=== PATIENT | female | born 1950 | race American Indian/Alaskan Native ===

== ENCOUNTER 2016-12-30 08:03 | Outpatient (CLI) | payer MEDICARE ==
--- NOTE | 2016-12-30 09:48 | Mammography Report ---
Bilateral mammogram: No previous studies are available. CAD study utilized. Findings: Heterogeneous breast parenchyma bilaterally. Focal calcific area at subareolar region left breast. Focal ill-defined density symmetrically lower anterior left breast. Normal axilla. Impression: Focal calcification noted left breast and focal asymmetry left breast. Comparison with previous studies initially recommended. If previous studies are not available spot magnification of calcification in the left breast and spot magnification and sonographic examination of focal asymmetry left breast recommended. BI-RADS CATEGORY: 0 = Needs additional imaging evaluation ACR BI-RADS MAMMOGRAPHIC CODES: 0 = Needs additional imaging evaluation; 1 = Negative; 2 = Benign; 3 = Probably benign; 4 = Suspicious; 5 = Malignant; 6 = Known biopsy-proven malignancy COMMENT: 1. Dense breast tissue, i.e., adenosis, fibrocystic changes, etc., may obscure an underlying neoplasm. 2. Approximately 10% of cancers are not detected with mammography. 3. A negative mammography report should not delay biopsy if a clinically suspicious mass is present. COMMENT: Patient follow-up letters are generated in [facility].
--- NOTE | 2016-12-30 09:56 | Mammography Report ---
BONE DENSITY STUDY: DEFINITIONS: BMD = Bone Mineral Density T-score = BMD related to mean peak bone mass of young adult (mean expressed in Standard Deviation) Z-score = Age matched BMD expressed in SD World Health Organization (WHO) Diagnostic Criteria Normal T-score > -1 SD Osteopenia T-score between -1 and -2.4 SD Osteoporosis T-score -2.5 SD or below FINDINGS: The weighted average BMD of lumbar spine L1-L4 is 0.820 with a T-score of -2.1. The weighted average BMD of hip is 0.845 with a T-score of -0.8. IMPRESSION: The patient's T-score is diagnostic for osteopenia and average relative risk for fracture. NOTE: BMD is not the only risk factor for fracture; also consider factors such as the patient's age, risk of falling, previous osteoporotic fracture, family history of osteoporotic fractures, current smoker, and low body weight. Pereira's triangle is a region of interest in femur, predominantly of trabecular bone. It is not a true anatomic site, and [facility] does not recommend its use clinically.
--- NOTE | 2016-12-30 11:05 | XRay Report ---
RIGHT KNEE, 3 VIEWS: HISTORY: Acute right knee pain. FINDINGS: There is borderline bone mineralization. Mild osteoarthritic changes are identified in all 3 compartments. There is no evidence for fracture, osteochondral defect or large joint effusion. 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 IMPRESSION: Osteoarthritic changes. Borderline osteopenia. No acute process is noted.
== END 2016-12-30 08:04 | disposition home or self-care (01) ==
LOC: MAMMO 08:03
PROVIDERS: ATTEND Family Medicine
DX: Z12.31 Encounter for screening mammogram for malignant neoplasm of breast (principal); Z13.820 Encounter for screening for osteoporosis; D16.21 Benign neoplasm of long bones of right lower limb; M85.80 Other specified disorders of bone density and structure, unspecified site; M25.561 Pain in right knee
CPT/HCPCS: 73562; 77080; G0202; 77067

== ENCOUNTER 2017-04-21 08:17 | Outpatient (CLI) | payer MEDICARE ==
--- NOTE | 2017-04-21 08:48 | Mammography Report ---
Spot compression magnification of asymmetric density lower left breast and calcification in the left breast: Findings: There is effacement noted of the density lower left breast on spot compression magnification view and the calcification in the inner left breast appears benign on spot views. Impression: Benign findings. Annual followup mammogram recommended. BI-RADS CATEGORY: 2 = Benign ACR BI-RADS MAMMOGRAPHIC CODES: 0 = Needs additional imaging evaluation; 1 = Negative; 2 = Benign; 3 = Probably benign; 4 = Suspicious; 5 = Malignant; 6 = Known biopsy-proven malignancy COMMENT: 1. Dense breast tissue, i.e., adenosis, fibrocystic changes, etc., may obscure an underlying neoplasm. 2. Approximately 10% of cancers are not detected with mammography. 3. A negative mammography report should not delay biopsy if a clinically suspicious mass is present.
== END 2017-04-21 08:18 | disposition home or self-care (01) ==
LOC: MAMMO 08:17
PROVIDERS: ATTEND Family Medicine
DX: R92.1 Mammographic calcification found on diagnostic imaging of breast (principal)
CPT/HCPCS: G0206-LT

== ENCOUNTER 2017-10-15 20:35 | Inpatient (IN) | payer MEDICARE ==
[~2017-10-15 20:35] MED LIST: ACETADOTE IV ONE; D5W IV ONE
[2017-10-15] MEDS ORDERED: ACTIDOSE-AQUA PO ONE (20:54)
--- NOTE | 2017-10-15 20:55 | Emergency Department Report ---
History of Present Illness - General Chief Complaint: Overdose Stated Complaint: POSS OD Time Seen by Provider: 10/15/17 20:38 Source: patient, EMS Mode of arrival: Ambulatory Limitations: No Limitations - History of Present Illness Initial Comments: 67-year-old female the past medical history G6PD deficiency presents to hospital with suicide attempt via overdose. Patient states her mother has liver with her for 1 month. Her mother got into an argument and which her mother accused her of stealing. Patient became upset and took but with left in her Tylenol bottle. She estimates it was half full ie 50 500 mg tablets. She also drank one beer with this ingestion that occurred at 7 PM. Patient denies any symptoms at this time. Denies previous psychiatric history with exception of suicide attempt as a teenager. She does not take any other medications and denies any coingestions. - Related Data Home Medications Medication Instructions Recorded Confirmed Last Taken No Known Home Medications [No 10/15/17 10/15/17 Unknown Reported Home Medications] Allergies Allergy/AdvReac Type Severity Reaction Status Date / Time aspirin AdvReac PT HAS GSPD Verified 10/15/17 22:40 ALL SULFA PRODUCTS AdvReac PT HAS G6PD Uncoded 10/15/17 22:40 ED Review of Systems ROS: Stated complaint: POSS OD Other details as noted in HPI Comment: All other systems reviewed and negative Other: Constitutional: No fevers chills Eyes: No eye pain visual changes ENT: No ear pain or throat pain Neck: Denies pain Respiratory: Denies cough wheezing shortness of breath Cardiovascular: Denies chest pain, palpitations, syncope GI: Denies abdominal pain, nausea, vomiting, diarrhea : Denies dysuria Musculoskeletal: Denies back pain, joint swelling Skin: Denies rash, lesions, erythema Neurologic: Denies headache, numbness, weakness Psychiatric: As per HPI ED Past Medical Hx - Past Medical History Additional medical history: G6P deficiency - Surgical History Past Surgical History?: Yes - Social History Smoking Status: Current Every Day Smoker Substance Use Type: Alcohol - Medications Home Medications: Home Medications Medication Instructions Recorded Confirmed Last Taken Type No Known Home Medications [No 10/15/17 10/15/17 Unknown History Reported Home Medications] ED Physical Exam - General Limitations: No Limitations - Other Other exam information: General: No limitations, patient is alert in no acute distress Head exam: Atraumatic, normocephalic Eyes exam: Normal appearance, pupils equal reactive to light, extraocular movements intact ENT: Moist mucous membrane, normal oropharynx Neck exam: Normal inspection, full range of motion, no meningismus nontender Respiratory exam: Clear to auscultation bilateral, no wheezes, rales, crackles Cardiovascular: Normal rate and rhythm, normal heart sounds Abdomen: Soft, nondistended, and nontender, with normal bowel sounds, no rebound, or guarding Extremity: Full range of motion normal inspection no deformity Back: Normal Inspection, full range of motion, no tenderness Neurologic: Alert, oriented x3, cranial nerves intact, no motor or sensory deficit Psychiatric: normal affect, normal mood Skin: Warm, dry, intact ED Course Vital Signs 10/15/17 10/15/17 10/15/17 20:35 20:46 20:57 Temperature Pulse Rate 70 74 71 Respiratory 20 20 17 Rate Blood Pressure 129/61 129/61 Blood Pressure 99/63 [Left] O2 Sat by Pulse Oximetry 10/15/17 10/15/17 10/15/17 20:59 21:00 21:15 Temperature 98.0 F Pulse Rate 71 Respiratory 15 20 Rate Blood Pressure 99/63 96/62 Blood Pressure [Left] O2 Sat by Pulse Oximetry 10/15/17 10/15/17 10/15/17 21:30 21:54 22:00 Temperature Pulse Rate 62 Respiratory 16 19 Rate Blood Pressure 96/62 102/60 102/59 Blood Pressure [Left] O2 Sat by Pulse 100 Oximetry 10/15/17 10/15/17 10/15/17 22:04 22:15 22:30 Temperature Pulse Rate 62 72 Respiratory 18 17 19 Rate Blood Pressure 94/59 96/60 Blood Pressure [Left] O2 Sat by Pulse 100 96 98 Oximetry 10/15/17 22:45 Temperature Pulse Rate 70 Respiratory 19 Rate Blood Pressure 95/56 Blood Pressure [Left] O2 Sat by Pulse 99 Oximetry - Reevaluation(s) Reevaluation #1: 10/15/17 23:57 Patient remains stable with stable vital signs and no symptoms - Consultations Consultation #1: 10/15/17 20:46 Case discussed with Bernard with [facility]. I informed him that the patient reports taking at leat 50 500 mg tablets making an acute ingestion of 25 ,000 mg at 7pm with a beer. Recommended to proceed with Tylenol level now and if level comes back greater than 300s to call them back. But otherwise recommended 4 hour level to determine if level greater than 150 requiring NAC therapy. Reports that we have 48 hours to initiate NAC with maximal effectiveness. Rec 70gm of activated charcoal. 10/15/17 21:37 called back regarding elevated Tylenol level, rec to wait for 4 hour level (due to be drawn at 11P) to determine treatment. Acetadote if level greater than 150. Recommended inpatient treatment: 1-2 hour before 24 hour Acetadote infusion completion repeat lft, tylenol, and coags. If lft's greater than 100, Tylenol is still dectable, or INR greater than 1.5 repeat 16hr dose of Acetadote 10/15/17 23:48 Poison control recalled at this time regarding 4 hour level. Recommend Acetadote ED Medical Decision Making - Lab Data Result diagrams: 10/15/17 20:53 10/15/17 20:53 Lab Results 10/15/17 10/15/17 10/15/17 Range/Units 20:53 20:53 20:53 WBC 7.1 (4.5-11.0) K/mm3 RBC 4.19 (3.65-5.03) M/mm3 Hgb 13.0 (10.1-14.3) gm/dl Hct 38.6 (30.3-42.9) % MCV 92 (79-97) fl MCH 31 (28-32) pg MCHC 34 (30-34) % RDW 13.1 L (13.2-15.2) % Plt Count 202 (140-440) K/mm3 Lymph % (Auto) 43.8 H (13.4-35.0) % Bucks % (Auto) 5.5 (0.0-7.3) % Eos % (Auto) 0.7 (0.0-4.3) % Baso % (Auto) 0.5 (0.0-1.8) % Lymph # 3.1 (1.2-5.4) K/mm3 Bucks # 0.4 (0.0-0.8) K/mm3 Eos # 0.0 (0.0-0.4) K/mm3 Baso # 0.0 (0.0-0.1) K/mm3 Seg Neutrophils % 49.5 (40.0-70.0) % Seg Neutrophils # 3.5 (1.8-7.7) K/mm3 PT 13.7 (12.2-14.9) Sec. INR 1.00 (0.87-1.13) APTT 27.0 (24.2-36.6) Sec. VBG pH (7.320-7.420) Sodium 142 (137-145) mmol/L Potassium 4.0 (3.6-5.0) mmol/L Chloride 101.4 (98-107) mmol/L Carbon Dioxide 23 (22-30) mmol/L Anion Gap 22 mmol/L BUN 7 (7-17) mg/dL Creatinine 0.5 L (0.7-1.2) mg/dL Estimated GFR > 60 ml/min BUN/Creatinine Ratio 14 % Glucose 104 H (65-100) mg/dL Calcium 9.0 (8.4-10.2) mg/dL Magnesium (1.7-2.3) mg/dL Total Bilirubin 0.50 (0.1-1.2) mg/dL Direct Bilirubin < 0.2 (0-0.2) mg/dL Indirect Bilirubin 0.3 mg/dL AST 14 (5-40) units/L ALT 8 (7-56) units/L Alkaline Phosphatase 62 (35-129) units/L Total Creatine Kinase (30-135) units/L Total Protein 6.8 (6.3-8.2) g/dL Albumin 4.1 (3.9-5) g/dL Albumin/Globulin Ratio 1.5 % Urine Color (Yellow) Urine Turbidity (Clear) Urine pH (5.0-7.0) Ur Specific [place] (1.003-1.030) Urine Protein (Negative) mg/dL Urine Glucose (UA) (Negative) mg/dL Urine Ketones (Negative) mg/dL Urine Blood (Negative) Urine Nitrite (Negative) Urine Bilirubin (Negative) Urine Urobilinogen (<2.0) mg/dL Ur Leukocyte Esterase (Negative) Urine WBC (Auto) (0.0-6.0) /HPF Urine RBC (Auto) (0.0-6.0) /HPF U Epithel Cells (Auto) (0-13.0) /HPF Urine Bacteria (Auto) (Negative) /HPF Salicylates (2.8-20.0) mg/dL Urine Opiates Screen Urine Methadone Screen Acetaminophen (10.0-30.0) ug/mL Ur Barbiturates Screen Ur Phencyclidine Scrn Ur Amphetamines Screen U Benzodiazepines Scrn Urine Cocaine Screen U Marijuana (THC) Screen Drugs of Abuse Note Plasma/Serum Alcohol (0-0.07) gm% 10/15/17 10/15/17 10/15/17 Range/Units 20:53 20:53 20:53 WBC (4.5-11.0) K/mm3 RBC (3.65-5.03) M/mm3 Hgb (10.1-14.3) gm/dl Hct (30.3-42.9) % MCV (79-97) fl MCH (28-32) pg MCHC (30-34) % RDW (13.2-15.2) % Plt Count (140-440) K/mm3 Lymph % (Auto) (13.4-35.0) % Bucks % (Auto) (0.0-7.3) % Eos % (Auto) (0.0-4.3) % Baso % (Auto) (0.0-1.8) % Lymph # (1.2-5.4) K/mm3 Bucks # (0.0-0.8) K/mm3 Eos # (0.0-0.4) K/mm3 Baso # (0.0-0.1) K/mm3 Seg Neutrophils % (40.0-70.0) % Seg Neutrophils # (1.8-7.7) K/mm3 PT (12.2-14.9) Sec. INR (0.87-1.13) APTT (24.2-36.6) Sec. VBG pH (7.320-7.420) Sodium (137-145) mmol/L Potassium (3.6-5.0) mmol/L Chloride (98-107) mmol/L Carbon Dioxide (22-30) mmol/L Anion Gap mmol/L BUN (7-17) mg/dL Creatinine (0.7-1.2) mg/dL Estimated GFR ml/min BUN/Creatinine Ratio % Glucose (65-100) mg/dL Calcium (8.4-10.2) mg/dL Magnesium (1.7-2.3) mg/dL Total Bilirubin (0.1-1.2) mg/dL Direct Bilirubin (0-0.2) mg/dL Indirect Bilirubin mg/dL AST (5-40) units/L ALT (7-56) units/L Alkaline Phosphatase (35-129) units/L Total Creatine Kinase (30-135) units/L Total Protein (6.3-8.2) g/dL Albumin (3.9-5) g/dL Albumin/Globulin Ratio % Urine Color (Yellow) Urine Turbidity (Clear) Urine pH (5.0-7.0) Ur Specific [place] (1.003-1.030) Urine Protein (Negative) mg/dL Urine Glucose (UA) (Negative) mg/dL Urine Ketones (Negative) mg/dL Urine Blood (Negative) Urine Nitrite (Negative) Urine Bilirubin (Negative) Urine Urobilinogen (<2.0) mg/dL Ur Leukocyte Esterase (Negative) Urine WBC (Auto) (0.0-6.0) /HPF Urine RBC (Auto) (0.0-6.0) /HPF U Epithel Cells (Auto) (0-13.0) /HPF Urine Bacteria (Auto) (Negative) /HPF Salicylates < 0.3 L (2.8-20.0) mg/dL Urine Opiates Screen Urine Methadone Screen Acetaminophen 278.3 H* (10.0-30.0) ug/mL Ur Barbiturates Screen Ur Phencyclidine Scrn Ur Amphetamines Screen U Benzodiazepines Scrn Urine Cocaine Screen U Marijuana (THC) Screen Drugs of Abuse Note Plasma/Serum Alcohol 0.18 H (0-0.07) gm% 10/15/17 10/15/17 10/15/17 Range/Units 20:53 20:53 20:53 WBC (4.5-11.0) K/mm3 RBC (3.65-5.03) M/mm3 Hgb (10.1-14.3) gm/dl Hct (30.3-42.9) % MCV (79-97) fl MCH (28-32) pg MCHC (30-34) % RDW (13.2-15.2) % Plt Count (140-440) K/mm3 Lymph % (Auto) (13.4-35.0) % Bucks % (Auto) (0.0-7.3) % Eos % (Auto) (0.0-4.3) % Baso % (Auto) (0.0-1.8) % Lymph # (1.2-5.4) K/mm3 Bucks # (0.0-0.8) K/mm3 Eos # (0.0-0.4) K/mm3 Baso # (0.0-0.1) K/mm3 Seg Neutrophils % (40.0-70.0) % Seg Neutrophils # (1.8-7.7) K/mm3 PT (12.2-14.9) Sec. INR (0.87-1.13) APTT (24.2-36.6) Sec. VBG pH 7.390 (7.320-7.420) Sodium (137-145) mmol/L Potassium (3.6-5.0) mmol/L Chloride (98-107) mmol/L Carbon Dioxide (22-30) mmol/L Anion Gap mmol/L BUN (7-17) mg/dL Creatinine (0.7-1.2) mg/dL Estimated GFR ml/min BUN/Creatinine Ratio % Glucose (65-100) mg/dL Calcium (8.4-10.2) mg/dL Magnesium 1.80 (1.7-2.3) mg/dL Total Bilirubin (0.1-1.2) mg/dL Direct Bilirubin (0-0.2) mg/dL Indirect Bilirubin mg/dL AST (5-40) units/L ALT (7-56) units/L Alkaline Phosphatase (35-129) units/L Total Creatine Kinase 37 (30-135) units/L Total Protein (6.3-8.2) g/dL Albumin (3.9-5) g/dL Albumin/Globulin Ratio % Urine Color (Yellow) Urine Turbidity (Clear) Urine pH (5.0-7.0) Ur Specific [place] (1.003-1.030) Urine Protein (Negative) mg/dL Urine Glucose (UA) (Negative) mg/dL Urine Ketones (Negative) mg/dL Urine Blood (Negative) Urine Nitrite (Negative) Urine Bilirubin (Negative) Urine Urobilinogen (<2.0) mg/dL Ur Leukocyte Esterase (Negative) Urine WBC (Auto) (0.0-6.0) /HPF Urine RBC (Auto) (0.0-6.0) /HPF U Epithel Cells (Auto) (0-13.0) /HPF Urine Bacteria (Auto) (Negative) /HPF Salicylates (2.8-20.0) mg/dL Urine Opiates Screen Urine Methadone Screen Acetaminophen (10.0-30.0) ug/mL Ur Barbiturates Screen Ur Phencyclidine Scrn Ur Amphetamines Screen U Benzodiazepines Scrn Urine Cocaine Screen U Marijuana (THC) Screen Drugs of Abuse Note Plasma/Serum Alcohol (0-0.07) gm% 10/15/17 10/15/17 10/15/17 Range/Units 21:43 21:43 22:59 WBC (4.5-11.0) K/mm3 RBC (3.65-5.03) M/mm3 Hgb (10.1-14.3) gm/dl Hct (30.3-42.9) % MCV (79-97) fl MCH (28-32) pg MCHC (30-34) % RDW (13.2-15.2) % Plt Count (140-440) K/mm3 Lymph % (Auto) (13.4-35.0) % Bucks % (Auto) (0.0-7.3) % Eos % (Auto) (0.0-4.3) % Baso % (Auto) (0.0-1.8) % Lymph # (1.2-5.4) K/mm3 Bucks # (0.0-0.8) K/mm3 Eos # (0.0-0.4) K/mm3 Baso # (0.0-0.1) K/mm3 Seg Neutrophils % (40.0-70.0) % Seg Neutrophils # (1.8-7.7) K/mm3 PT (12.2-14.9) Sec. INR (0.87-1.13) APTT (24.2-36.6) Sec. VBG pH (7.320-7.420) Sodium (137-145) mmol/L Potassium (3.6-5.0) mmol/L Chloride (98-107) mmol/L Carbon Dioxide (22-30) mmol/L Anion Gap mmol/L BUN (7-17) mg/dL Creatinine (0.7-1.2) mg/dL Estimated GFR ml/min BUN/Creatinine Ratio % Glucose (65-100) mg/dL Calcium (8.4-10.2) mg/dL Magnesium (1.7-2.3) mg/dL Total Bilirubin (0.1-1.2) mg/dL Direct Bilirubin (0-0.2) mg/dL Indirect Bilirubin mg/dL AST (5-40) units/L ALT (7-56) units/L Alkaline Phosphatase (35-129) units/L Total Creatine Kinase (30-135) units/L Total Protein (6.3-8.2) g/dL Albumin (3.9-5) g/dL Albumin/Globulin Ratio % Urine Color Yellow (Yellow) Urine Turbidity Clear (Clear) Urine pH 5.0 (5.0-7.0) Ur Specific [place] 1.009 (1.003-1.030) Urine Protein <15 mg/dl (Negative) mg/dL Urine Glucose (UA) Neg (Negative) mg/dL Urine Ketones Neg (Negative) mg/dL Urine Blood Neg (Negative) Urine Nitrite Neg (Negative) Urine Bilirubin Neg (Negative) Urine Urobilinogen < 2.0 (<2.0) mg/dL Ur Leukocyte Esterase Neg (Negative) Urine WBC (Auto) < 1.0 (0.0-6.0) /HPF Urine RBC (Auto) < 1.0 (0.0-6.0) /HPF U Epithel Cells (Auto) < 1.0 (0-13.0) /HPF Urine Bacteria (Auto) 1+ (Negative) /HPF Salicylates (2.8-20.0) mg/dL Urine Opiates Screen Presumptive negative Urine Methadone Screen Presumptive negative Acetaminophen 225.7 H* (10.0-30.0) ug/mL Ur Barbiturates Screen Presumptive negative Ur Phencyclidine Scrn Presumptive negative Ur Amphetamines Screen Presumptive negative U Benzodiazepines Scrn Presumptive negative Urine Cocaine Screen Presumptive negative U Marijuana (THC) Screen Presumptive negative Drugs of Abuse Note Disclamer Plasma/Serum Alcohol (0-0.07) gm% - EKG Data -: EKG Interpreted by Ia EKG shows normal: sinus rhythm, axis (qrs 54), QRS complexes (92), ST-T waves ( no stemi/t inv) Rate: normal (69) - EKG Data When compared to previous EKG there are: previous EKG unavailable - Medical Decision Making Patient requires admission to the hospital for IV infusion of Acetadote for acute Tylenol ingestion with toxic level. LFTs and coagulation profile within normal limits. 1013 signed. - Differential Diagnosis suicidal ideation, intoxication, overdose Critical Care Time: No Critical care attestation.: If time is entered above; I have spent that time in minutes in the direct care of this critically ill patient, excluding procedure time. ED Disposition Clinical Impression: Suicide attempt by acetaminophen overdose, G-6-PD deficiency, Alcohol intoxication Disposition: DC-09 OP ADMIT IP TO THIS HOSP Is pt being admited?: Yes Condition: Stable Time of Disposition: 23:52 (Dr Romero/hosp)
[2017-10-15] MEDS ORDERED: NACL 0.9% 1000 ML 1,000 ML IV ONE (21:19)
[2017-10-15 21:22] LABS: Basophils % (Auto) 0.5 % (0.0-1.8); Eosinophils % (Auto) 0.7 % (0.0-4.3); Hematocrit 38.6 % (30.3-42.9); Mean Corpuscular HGB Conc 34 % (30-34); Mean Corpuscular Hemoglobin 31 pg (28-32); Mean Corpuscular Volume 92 fl (79-97); Platelet Count 202 K/mm3 (140-440); Red Blood Count 4.19 M/mm3 (3.65-5.03); Red Cell Distribution Width 13.1 % (13.2-15.2); White Blood Count 7.1 K/mm3 (4.5-11.0)
[2017-10-15 21:28] LABS: Alanine Aminotransferase 8 units/L (7-56); Albumin 4.1 g/dL (3.9-5); Albumin/Globulin Ratio 1.5 %; Alkaline Phosphatase 62 units/L (35-129); Anion Gap 22 mmol/L; BUN/Creatinine Ratio 14; Blood Urea Nitrogen 7 mg/dL (7-17); Carbon Dioxide 23 mmol/L (22-30); Chloride 101.4 mmol/L (98-107); Glucose 104 mg/dL (65-100); Sodium 142 mmol/L (137-145); Total Protein 6.8 g/dL (6.3-8.2)
[2017-10-15 21:29] LABS: Bilirubin,Direct < 0.2 mg/dL (0-0.2); Bilirubin,Indirect 0.3 mg/dL
[2017-10-15 21:47] LABS: Urine Drugs of Abuse Note Disclamer
[2017-10-15 22:01] LABS: Bacteria,Urine 1+ /HPF (Negative); Bilirubin,Urine NEG (Negative); Blood,Urine NEG (Negative); Ketones,Urine NEG (Negative); Leukocyte Esterase,Urine NEG (Negative); Nitrite,Urine NEG (Negative); Protein,Urine <15 mg/dL mg/dL (Negative); RBC,Urine < 1.0 /HPF (0.0-6.0); Urobilinogen,Urine < 2.0 mg/dL (<2.0); WBC,Urine < 1.0 /HPF (0.0-6.0)
[2017-10-15] MEDS ORDERED: D5W IV ONE (23:47)
[2017-10-15] MEDS ORDERED: ACETADOTE IV ONE ×2 (23:47)
--- NOTE | 2017-10-15 23:55 | History and Physical Report ---
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 PT states that she became very upset after arguing with her mother today. Pt states that her mother accused her of stealing. Pt subsequently took approximately fifty(50) 500mg Tylenol tablets as well as drank a beer in an attempt to end her life. Pt states that incident occurred around 1900hrs. Pt acknowledges suicide attempt as a teenager. Pt denies fever, chills, CP, Palpitation, NVD, Syncope, BRBPR, loss of consciousness, or recent ill contacts. Poison control notified in ED and recommended NAC antidote drip for 24 hours with repeat LFT and coagulation profile and Tylenol level at 22-23 hour infusion time. If INR above 1.5, or Tylenol level greater than 100, then continue NAC drip for an additional 16 hours. Past History Past Medical History: other (Nocotine Dependence, Suicide Attempt, G6P Deficiency) Past Surgical History: No surgical history, Other (reviewed) Social history: single, smoking, alcohol abuse. denies: prescription drug abuse , IV drug use Family history: no significant family history (reviewed) Medications and Allergies Allergies Allergy/AdvReac Type Severity Reaction Status Date / Time aspirin AdvReac PT HAS GSPD Verified 10/15/17 22:40 ALL SULFA PRODUCTS AdvReac PT HAS G6PD Uncoded 10/15/17 22:40 Home Medications Medication Instructions Recorded Confirmed Last Taken Type No Known Home Medications [No 10/15/17 10/15/17 Unknown History Reported Home Medications] Active Meds: Active Medications Acetylcysteine 10,605 mg/ (Dextrose) 253.025 mls @ 200 mls/hr IV ONCE.ED ONE Stop: 10/16/17 01:02 Acetylcysteine 3,535 mg/ (Dextrose) 517.675 mls @ 125 mls/hr IV ONCE.ED ONE Stop: 10/15/17 04:55 Acetylcysteine 7,070 mg/ (Dextrose) 1,035.35 mls @ 62.5 mls/hr IV ONCE ONE Stop: 10/16/17 21:20 Review of Systems Constitutional: no weight loss, no weight gain, no fever, no chills Ears, nose, mouth and throat: no ear pain, no ear discharge, no tinnitis, no decreased hearing, no nose pain, no nasal congestion Breasts: no change in shape, no swelling, no mass Cardiovascular: no chest pain, no orthopnea, no palpitations, no rapid/ irregular heart beat, no edema Respiratory: no cough, no cough with sputum, no excessive sputum, no hemoptysis , no shortness of breath Gastrointestinal: no abdominal pain, no nausea, no vomiting, no diarrhea, no constipation, no change in bowel habits, no BRBPR, no melena, no hematochezia, no loss of appetite Genitourinary Female: no pelvic pain, no flank pain, no menorrhagia, no dysuria , no urinary frequency, no urgency Rectal: no pain, no incontinence, no bleeding Musculoskeletal: no neck stiffness, no neck pain, no shooting arm pain, no arm numbness/tingling, no low back pain Integumentary: no rash, no pruritis, no redness, no sores, no wounds Neurological: no head injury, no transient paralysis, no paralysis, no weakness , no parathesias, no numbness, no tingling Psychiatric: suicidal ideation, depression, irritability, sadness/tearfullness, mood swings, no anxiety, no memory loss, no change in sleep habits, no sleep disturbances, no insomnia, no hypersomnia Endocrine: no cold intolerance, no heat intolerance, no polyphagia, no excessive thirst, no polydipsia, no polyuria Hematologic/Lymphatic: no easy bruising, no easy bleeding Allergic/Immunologic: no urticaria, no allergic rhinitis, no wheezing Exam - Constitutional Vitals: Temp Pulse Resp BP Pulse Ox 98.0 F 70 19 95/56 99 10/15/17 20:59 10/15/17 22:45 10/15/17 22:45 10/15/17 22:45 10/15/17 22:45 General appearance: Present: no acute distress, well-nourished - EENT Eyes: Present: PERRL ENT: hearing intact, clear oral mucosa - Neck Neck: Present: supple, normal ROM - Respiratory Respiratory effort: normal Respiratory: bilateral: CTA - Cardiovascular Heart Sounds: Present: S1 & S2. Absent: rub, click - Extremities Extremities: pulses symmetrical, No edema Peripheral Pulses: within normal limits - Abdominal General gastrointestinal: Present: soft, non-tender, non-distended, normal bowel sounds Female genitourinary: Present: normal - Integumentary Integumentary: Present: clear, warm, dry - Musculoskeletal Musculoskeletal: gait normal, strength equal bilaterally - Psychiatric Psychiatric: appropriate mood/affect, intact judgment & insight, agitated - Neurologic Neurologic: CNII-XII intact, moves all extremities Results - Labs CBC & Chem 7: 10/15/17 20:53 10/15/17 20:53 Labs: Abnormal lab results 10/15/17 10/15/17 10/15/17 Range/Units 20:53 20:53 20:53 RDW 13.1 L (13.2-15.2) % Lymph % (Auto) 43.8 H (13.4-35.0) % Creatinine 0.5 L (0.7-1.2) mg/dL Glucose 104 H (65-100) mg/dL Salicylates < 0.3 L (2.8-20.0) mg/dL Acetaminophen (10.0-30.0) ug/mL Plasma/Serum Alcohol (0-0.07) gm% 10/15/17 10/15/17 10/15/17 Range/Units 20:53 20:53 22:59 RDW (13.2-15.2) % Lymph % (Auto) (13.4-35.0) % Creatinine (0.7-1.2) mg/dL Glucose (65-100) mg/dL Salicylates (2.8-20.0) mg/dL Acetaminophen 278.3 H* 225.7 H* (10.0-30.0) ug/mL Plasma/Serum Alcohol 0.18 H (0-0.07) gm% Assessment and Plan - Patient Problems (1) Acetaminophen overdose Current Visit: Yes Status: Acute Plan to address problem: Poison control consulted. NAC antidote drip for 24 hours. Recheck Tylenol, LFT, and coagulation profile at 22-23 hour vicky, and if INR above 1.5, or tylenol level greater than 100 then continue NAC drip for an additional 16 hrs. (2) Alcohol intoxication Current Visit: Yes Status: Acute Plan to address problem: CIWA protocol, supportive care. (3) Suicide attempt Current Visit: Yes Status: Acute Plan to address problem: [address] place, psych consulted, (4) G-6-PD deficiency Current Visit: Yes Status: Acute Plan to address problem: Supportive care, ETOH cessation, supportive care. (5) DVT prophylaxis Current Visit: Yes Status: Acute
[2017-10-15] MEDS ORDERED: PROVENTIL IH PRN (23:57)
[2017-10-15] MEDS ORDERED: ZOFRAN IV PRN (23:57)
[2017-10-16] MEDS ORDERED: NACL 0.9% 1000 ML 1,000 ML IV ONE (00:14)
[2017-10-16] MEDS ORDERED: D5W IV ONE (00:47)
[2017-10-16] MEDS ORDERED: ACETADOTE IV ONE (00:47)
[2017-10-16 07:15] LABS: Alanine Aminotransferase 6 units/L (7-56); Albumin 3.6 g/dL (3.9-5); Albumin/Globulin Ratio 1.4 %; Alkaline Phosphatase 50 units/L (35-129); Total Protein 6.1 g/dL (6.3-8.2)
[2017-10-16 07:24] LABS: Bilirubin,Direct < 0.2 mg/dL (0-0.2)
[2017-10-16 07:55] LABS: INR 1.19 (0.87-1.13)
[2017-10-16 07:56] LABS: Partial Thromboplastin Time 28.4 Sec. (24.2-36.6)
--- NOTE | 2017-10-16 11:27 | Progress Note ---
<FLORIDALMA AZUL - Last Filed: 10/16/17 11:21> Assessment and Plan Assessment and plan: 67 year-old Female with Nicotine Dependence, G6P Deficiency, ETOH Abuse presented to ED for evaluation one day ago. PT stated that she became very upset after arguing with her mother. Pt states that her mother accused her of stealing. Pt subsequently took approximately fifty(50) 500mg Tylenol tablets as well as drank a beer in an attempt to end her life. Acetaminophen overdose Poison control consulted. NAC antidote drip for 24 hours. Recheck Tylenol, LFT, and coagulation profile at 22-23 hour vicky, and if INR above 1.5, or tylenol level greater than 100 then continue NAC drip for an additional 16 hrs. Alcohol intoxication CIWA protocol, supportive care. Suicide attempt [address], psych consulted, G-6-PD deficiency Supportive care, ETOH cessation DVT prophylaxis SSDs History Interval history: Patient is alert and laying comfortably in bed. She has no complaints at this time. Hospitalist Physical - Constitutional Vitals: Temp Pulse Resp BP Pulse Ox 98.9 F 77 18 145/83 99 10/16/17 07:11 10/16/17 07:11 10/16/17 07:11 10/16/17 07:11 10/16/17 07:11 General appearance: Present: no acute distress, well-nourished - EENT Eyes: Present: PERRL, EOM intact ENT: hearing intact, clear oral mucosa - Neck Neck: Present: supple, normal ROM - Respiratory Respiratory effort: normal Respiratory: bilateral: CTA - Cardiovascular Rhythm: regular Heart Sounds: Present: S1 & S2. Absent: rub, click - Extremities Extremities: no ischemia, No edema Peripheral Pulses: within normal limits - Abdominal General gastrointestinal: deferred - Integumentary Integumentary: Present: clear, warm, dry - Psychiatric Psychiatric: appropriate mood/affect, intact judgment & insight, memory intact, cooperative - Neurologic Neurologic: CNII-XII intact, moves all extremities - Allied Health Allied health notes reviewed: nursing Results - Labs CBC & Chem 7: 10/15/17 20:53 10/15/17 20:53 Labs: Laboratory Last Values WBC 7.1 K/mm3 (4.5-11.0) 10/15/17 20:53 RBC 4.19 M/mm3 (3.65-5.03) 10/15/17 20:53 Hgb 13.0 gm/dl (10.1-14.3) 10/15/17 20:53 Hct 38.6 % (30.3-42.9) 10/15/17 20:53 MCV 92 fl (79-97) 10/15/17 20:53 MCH 31 pg (28-32) 10/15/17 20:53 MCHC 34 % (30-34) 10/15/17 20:53 RDW 13.1 % (13.2-15.2) L 10/15/17 20:53 Plt Count 202 K/mm3 (140-440) 10/15/17 20:53 Lymph % (Auto) 43.8 % (13.4-35.0) H 10/15/17 20:53 [place] % (Auto) 5.5 % (0.0-7.3) 10/15/17 20:53 Eos % (Auto) 0.7 % (0.0-4.3) 10/15/17 20:53 Baso % (Auto) 0.5 % (0.0-1.8) 10/15/17 20:53 Lymph # 3.1 K/mm3 (1.2-5.4) 10/15/17 20:53 [place] # 0.4 K/mm3 (0.0-0.8) 10/15/17 20:53 Eos # 0.0 K/mm3 (0.0-0.4) 10/15/17 20:53 Baso # 0.0 K/mm3 (0.0-0.1) 10/15/17 20:53 Seg Neutrophils % 49.5 % (40.0-70.0) 10/15/17 20:53 Seg Neutrophils # 3.5 K/mm3 (1.8-7.7) 10/15/17 20:53 PT 15.7 Sec. (12.2-14.9) H 10/16/17 07:26 INR 1.19 (0.87-1.13) H 10/16/17 07:26 APTT 28.4 Sec. (24.2-36.6) 10/16/17 07:26 VBG pH 7.390 (7.320-7.420) 10/15/17 20:53 Sodium 142 mmol/L (137-145) 10/15/17 20:53 Potassium 4.0 mmol/L (3.6-5.0) 10/15/17 20:53 Chloride 101.4 mmol/L (98-107) 10/15/17 20:53 Carbon Dioxide 23 mmol/L (22-30) 10/15/17 20:53 Anion Gap 22 mmol/L 10/15/17 20:53 BUN 7 mg/dL (7-17) 10/15/17 20:53 Creatinine 0.5 mg/dL (0.7-1.2) L 10/15/17 20:53 Estimated GFR > 60 ml/min 10/15/17 20:53 BUN/Creatinine Ratio 14 % 10/15/17 20:53 Glucose 104 mg/dL (65-100) H 10/15/17 20:53 Calcium 9.0 mg/dL (8.4-10.2) 10/15/17 20:53 Magnesium 1.80 mg/dL (1.7-2.3) 10/15/17 20:53 Total Bilirubin 0.50 mg/dL (0.1-1.2) 10/16/17 06:22 Direct Bilirubin < 0.2 mg/dL (0-0.2) 10/16/17 06:22 Indirect Bilirubin 0.3 mg/dL 10/15/17 20:53 AST 11 units/L (5-40) 10/16/17 06:22 ALT 6 units/L (7-56) L 10/16/17 06:22 Alkaline Phosphatase 50 units/L (35-129) 10/16/17 06:22 Total Creatine Kinase 37 units/L (30-135) 10/15/17 20:53 Total Protein 6.1 g/dL (6.3-8.2) L 10/16/17 06:22 Albumin 3.6 g/dL (3.9-5) L 10/16/17 06:22 Albumin/Globulin Ratio 1.4 % 10/16/17 06:22 Urine Color Yellow (Yellow) 10/15/17 21:43 Urine Turbidity Clear (Clear) 10/15/17 21:43 Urine pH 5.0 (5.0-7.0) 10/15/17 21:43 Ur Specific [place] 1.009 (1.003-1.030) 10/15/17 21:43 Urine Protein <15 mg/dl mg/dL (Negative) 10/15/17 21:43 Urine Glucose (UA) Neg mg/dL (Negative) 10/15/17 21:43 Urine Ketones Neg mg/dL (Negative) 10/15/17 21:43 Urine Blood Neg (Negative) 10/15/17 21:43 Urine Nitrite Neg (Negative) 10/15/17 21:43 Urine Bilirubin Neg (Negative) 10/15/17 21:43 Urine Urobilinogen < 2.0 mg/dL (<2.0) 10/15/17 21:43 Ur Leukocyte Esterase Neg (Negative) 10/15/17 21:43 Urine WBC (Auto) < 1.0 /HPF (0.0-6.0) 10/15/17 21:43 Urine RBC (Auto) < 1.0 /HPF (0.0-6.0) 10/15/17 21:43 U Epithel Cells (Auto) < 1.0 /HPF (0-13.0) 10/15/17 21:43 Urine Bacteria (Auto) 1+ /HPF (Negative) 10/15/17 21:43 Salicylates < 0.3 mg/dL (2.8-20.0) L 10/15/17 20:53 Urine Opiates Screen Presumptive negative 10/15/17 21:43 Urine Methadone Screen Presumptive negative 10/15/17 21:43 Acetaminophen 225.7 ug/mL (10.0-30.0) H* 10/15/17 22:59 Ur Barbiturates Screen Presumptive negative 10/15/17 21:43 Ur Phencyclidine Scrn Presumptive negative 10/15/17 21:43 Ur Amphetamines Screen Presumptive negative 10/15/17 21:43 U Benzodiazepines Scrn Presumptive negative 10/15/17 21:43 Urine Cocaine Screen Presumptive negative 10/15/17 21:43 U Marijuana (THC) Screen Presumptive negative 10/15/17 21:43 Drugs of Abuse Note Disclamer 10/15/17 21:43 Plasma/Serum Alcohol 0.18 gm% (0-0.07) H 10/15/17 20:53 <GARY MENSAH M - Last Filed: 10/17/17 08:02> Assessment and Plan Assessment and plan: I saw and evaluated the patient. I agree with the findings and the plan of care as documented in the Nurse Practitioner's progress note. Hospitalist Physical - Constitutional Vitals: Temp Pulse Resp BP Pulse Ox 98.6 F 56 L 16 139/70 99 10/17/17 07:58 10/17/17 07:58 10/17/17 07:58 10/17/17 07:58 10/17/17 07:58 Results - Labs CBC & Chem 7: 10/17/17 05:03 10/16/17 20:21 Labs: Laboratory Last Values WBC 5.5 K/mm3 (4.5-11.0) 10/17/17 05:03 RBC 3.58 M/mm3 (3.65-5.03) L 10/17/17 05:03 Hgb 11.2 gm/dl (10.1-14.3) 10/17/17 05:03 Hct 33.3 % (30.3-42.9) 10/17/17 05:03 MCV 93 fl (79-97) 10/17/17 05:03 MCH 31 pg (28-32) 10/17/17 05:03 MCHC 34 % (30-34) 10/17/17 05:03 RDW 13.1 % (13.2-15.2) L 10/17/17 05:03 Plt Count 189 K/mm3 (140-440) 10/17/17 05:03 Lymph % (Auto) 38.9 % (13.4-35.0) H 10/17/17 05:03 [place] % (Auto) 6.9 % (0.0-7.3) 10/17/17 05:03 Eos % (Auto) 1.7 % (0.0-4.3) 10/17/17 05:03 Baso % (Auto) 0.5 % (0.0-1.8) 10/17/17 05:03 Lymph # 2.1 K/mm3 (1.2-5.4) 10/17/17 05:03 [place] # 0.4 K/mm3 (0.0-0.8) 10/17/17 05:03 Eos # 0.1 K/mm3 (0.0-0.4) 10/17/17 05:03 Baso # 0.0 K/mm3 (0.0-0.1) 10/17/17 05:03 Seg Neutrophils % 52.0 % (40.0-70.0) 10/17/17 05:03 Seg Neutrophils # 2.8 K/mm3 (1.8-7.7) 10/17/17 05:03 PT 15.2 Sec. (12.2-14.9) H 10/16/17 20:21 INR 1.14 (0.87-1.13) H 10/16/17 20:21 APTT 28.4 Sec. (24.2-36.6) 10/16/17 07:26 VBG pH 7.390 (7.320-7.420) 10/15/17 20:53 Sodium 142 mmol/L (137-145) 10/16/17 20:21 Potassium 3.8 mmol/L (3.6-5.0) 10/16/17 20:21 Chloride 105.9 mmol/L (98-107) 10/16/17 20:21 Carbon Dioxide 24 mmol/L (22-30) 10/16/17 20:21 Anion Gap 16 mmol/L 10/16/17 20:21 BUN 5 mg/dL (7-17) L 10/16/17 20:21 Creatinine 0.4 mg/dL (0.7-1.2) L 10/16/17 20:21 Estimated GFR > 60 ml/min 10/16/17 20:21 BUN/Creatinine Ratio 13 % 10/16/17 20:21 Glucose 133 mg/dL (65-100) H 10/16/17 20:21 Calcium 8.5 mg/dL (8.4-10.2) 10/16/17 20:21 Magnesium 1.80 mg/dL (1.7-2.3) 10/15/17 20:53 Total Bilirubin 1.20 mg/dL (0.1-1.2) 10/16/17 20:21 Direct Bilirubin < 0.2 mg/dL (0-0.2) 10/16/17 06:22 Indirect Bilirubin 0.3 mg/dL 10/15/17 20:53 AST 10 units/L (5-40) 10/16/17 20:21 ALT 7 units/L (7-56) 10/16/17 20:21 Alkaline Phosphatase 51 units/L (35-129) 10/16/17 20:21 Total Creatine Kinase 37 units/L (30-135) 10/15/17 20:53 Total Protein 5.6 g/dL (6.3-8.2) L 10/16/17 20:21 Albumin 3.4 g/dL (3.9-5) L 10/16/17 20:21 Albumin/Globulin Ratio 1.5 % 10/16/17 20:21 Urine Color Yellow (Yellow) 10/15/17 21:43 Urine Turbidity Clear (Clear) 10/15/17 21:43 Urine pH 5.0 (5.0-7.0) 10/15/17 21:43 Ur Specific [place] 1.009 (1.003-1.030) 10/15/17 21:43 Urine Protein <15 mg/dl mg/dL (Negative) 10/15/17 21:43 Urine Glucose (UA) Neg mg/dL (Negative) 10/15/17 21:43 Urine Ketones Neg mg/dL (Negative) 10/15/17 21:43 Urine Blood Neg (Negative) 10/15/17 21:43 Urine Nitrite Neg (Negative) 10/15/17 21:43 Urine Bilirubin Neg (Negative) 10/15/17 21:43 Urine Urobilinogen < 2.0 mg/dL (<2.0) 10/15/17 21:43 Ur Leukocyte Esterase Neg (Negative) 10/15/17 21:43 Urine WBC (Auto) < 1.0 /HPF (0.0-6.0) 10/15/17 21:43 Urine RBC (Auto) < 1.0 /HPF (0.0-6.0) 10/15/17 21:43 U Epithel Cells (Auto) < 1.0 /HPF (0-13.0) 10/15/17 21:43 Urine Bacteria (Auto) 1+ /HPF (Negative) 10/15/17 21:43 Salicylates < 0.3 mg/dL (2.8-20.0) L 10/15/17 20:53 Urine Opiates Screen Presumptive negative 10/15/17 21:43 Urine Methadone Screen Presumptive negative 10/15/17 21:43 Acetaminophen < 15.0 ug/mL (10.0-30.0) 10/16/17 20:21 Ur Barbiturates Screen Presumptive negative 10/15/17 21:43 Ur Phencyclidine Scrn Presumptive negative 10/15/17 21:43 Ur Amphetamines Screen Presumptive negative 10/15/17 21:43 U Benzodiazepines Scrn Presumptive negative 10/15/17 21:43 Urine Cocaine Screen Presumptive negative 10/15/17 21:43 U Marijuana (THC) Screen Presumptive negative 10/15/17 21:43 Drugs of Abuse Note Disclamer 10/15/17 21:43 Plasma/Serum Alcohol 0.18 gm% (0-0.07) H 10/15/17 20:53
[2017-10-16] MEDS: D5W IV ONE ×2 (19:33→21:29)
[2017-10-16] MEDS: ACETADOTE IV ONE ×2 (19:33→21:29)
[2017-10-16 21:05] LABS: INR 1.14 (0.87-1.13)
[2017-10-16 21:10] LABS: Alanine Aminotransferase 7 units/L (7-56); Albumin 3.4 g/dL (3.9-5); Albumin/Globulin Ratio 1.5 %; Alkaline Phosphatase 51 units/L (35-129); Anion Gap 16 mmol/L; BUN/Creatinine Ratio 13; Blood Urea Nitrogen 5 mg/dL (7-17); Calcium 8.5 mg/dL (8.4-10.2); Carbon Dioxide 24 mmol/L (22-30); Chloride 105.9 mmol/L (98-107); Glucose 133 mg/dL (65-100); Potassium 3.8 mmol/L (3.6-5.0); Sodium 142 mmol/L (137-145); Total Protein 5.6 g/dL (6.3-8.2)
[2017-10-17 05:29] LABS: Basophils % (Auto) 0.5 % (0.0-1.8); Eosinophils % (Auto) 1.7 % (0.0-4.3); Hematocrit 33.3 % (30.3-42.9); Hemoglobin 11.2 gm/dl (10.1-14.3); Mean Corpuscular HGB Conc 34 % (30-34); Mean Corpuscular Hemoglobin 31 pg (28-32); Mean Corpuscular Volume 93 fl (79-97); Platelet Count 189 K/mm3 (140-440); Red Blood Count 3.58 M/mm3 (3.65-5.03); Red Cell Distribution Width 13.1 % (13.2-15.2); White Blood Count 5.5 K/mm3 (4.5-11.0)
--- NOTE | 2017-10-17 10:28 | Discharge Summary ---
Providers - Providers Date of Admission: 10/15/17 23:57 Date of discharge: 10/17/17 Attending physician: GARY MENSAH MD 10/16/17 00:02 psychiatry consult [Consult to Mental Health] [CONS] Routine Reason For Exam: suicide attempt Place consult to:: psych Notified:: Phone number called:: [phone] Was contact made?: Yes If yes, spoke with:: mike Time called:: 07:50 Primary care physician: LITER[employer] EDUCATION PROFESSOR Hospitalization Condition: Stable Hospital course: 67 year-old Female with Nicotine Dependence, G6P Deficiency, ETOH Abuse presented to ED for evaluation one day ago. PT stated that she became very upset after arguing with her mother. Pt states that her mother accused her of stealing. Pt subsequently took approximately fifty(50) 500mg Tylenol tablets as well as drank a beer in an attempt to end her life. Patient was treated with Acetadote. Patient will continue 1012 with placement to inpatient psy services upon. Disposition: TO HOME OR SELFCARE Core Measure Documentation - Palliative Care Palliative Care/ Comfort Measures: Not Applicable - Core Measures Any of the following diagnoses?: none Exam - Constitutional Vitals: Temp Pulse Resp BP Pulse Ox 98.6 F 56 L 16 139/70 99 10/17/17 07:58 10/17/17 07:58 10/17/17 07:58 10/17/17 07:58 10/17/17 07:58 General appearance: Present: no acute distress - EENT Eyes: Present: PERRL ENT: hearing intact, clear oral mucosa - Neck Neck: Present: supple, normal ROM - Respiratory Respiratory effort: normal Respiratory: bilateral: CTA - Cardiovascular Heart Sounds: Present: S1 & S2. Absent: rub, click - Extremities Extremities: pulses symmetrical, No edema Peripheral Pulses: within normal limits - Abdominal General gastrointestinal: Present: soft, non-tender, non-distended, normal bowel sounds Female genitourinary: Present: deferred - Rectal Rectal Exam: deferred - Integumentary Integumentary: Present: clear, warm, dry - Musculoskeletal Musculoskeletal: gait normal, strength equal bilaterally - Psychiatric Psychiatric: appropriate mood/affect, intact judgment & insight - Neurologic Neurologic: CNII-XII intact, moves all extremities - Allied Health Allied health notes reviewed: nursing Plan Activity: fall precautions Weight Bearing Status: Full Weight Bearing Diet: low fat, low cholesterol, low salt Follow up with: PRIMARY CARE, [Primary Care Provider] - 7 Days
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
--- NOTE | 2017-10-17 17:31 | Progress Note ---
Assessment and Plan Assessment and plan: Patient was admitted for acetaminophen overdose with intent to kill herself after she has argument with her mother. She said she took 50 acetaminophen tablets. At presentation acetaminophen level was high and she was treated With N-actylcystine. Liver enzymes are within normal limits. INR was slightly elevated but trending down. Patient is medically cleared for discharge. Psych finding placement for inpatient psychiatric treatment. History Interval history: Patient was seen and evaluated this morning, patient denied suicidal ideation. Patient didn't have any other complaints. Hospitalist Physical - Physical exam Narrative exam: Not in cardiopulmonary distress. The patient appeared well nourished and normally developed. Vital signs as documented. Head exam is unremarkable. No scleral icterus . Neck is without jugular venous distension, thyromegaly, or carotid bruits. Lungs are clear to auscultation. Cardiac exam reveals regular rate and Rhythm. First and second heart sounds normal. No murmurs, rubs or gallops. Abdominal exam reveals normal bowel sounds, no masses, no organomegaly and no aortic enlargement. Extremities are nonedematous and both femoral and pedal pulses are normal. [employer]: Alert and oriented 3. No focal weakness. - Constitutional Vitals: Temp Pulse Resp BP Pulse Ox 98.3 F 65 16 127/71 98 10/17/17 15:38 10/17/17 15:38 10/17/17 15:38 10/17/17 15:38 10/17/17 15:38 General appearance: Present: no acute distress Results - Labs CBC & Chem 7: 10/17/17 05:03 10/16/17 20:21 Labs: Laboratory Last Values WBC 5.5 K/mm3 (4.5-11.0) 10/17/17 05:03 RBC 3.58 M/mm3 (3.65-5.03) L 10/17/17 05:03 Hgb 11.2 gm/dl (10.1-14.3) 10/17/17 05:03 Hct 33.3 % (30.3-42.9) 10/17/17 05:03 MCV 93 fl (79-97) 10/17/17 05:03 MCH 31 pg (28-32) 10/17/17 05:03 MCHC 34 % (30-34) 10/17/17 05:03 RDW 13.1 % (13.2-15.2) L 10/17/17 05:03 Plt Count 189 K/mm3 (140-440) 10/17/17 05:03 Lymph % (Auto) 38.9 % (13.4-35.0) H 10/17/17 05:03 [place] % (Auto) 6.9 % (0.0-7.3) 10/17/17 05:03 Eos % (Auto) 1.7 % (0.0-4.3) 10/17/17 05:03 Baso % (Auto) 0.5 % (0.0-1.8) 10/17/17 05:03 Lymph # 2.1 K/mm3 (1.2-5.4) 10/17/17 05:03 [place] # 0.4 K/mm3 (0.0-0.8) 10/17/17 05:03 Eos # 0.1 K/mm3 (0.0-0.4) 10/17/17 05:03 Baso # 0.0 K/mm3 (0.0-0.1) 10/17/17 05:03 Seg Neutrophils % 52.0 % (40.0-70.0) 10/17/17 05:03 Seg Neutrophils # 2.8 K/mm3 (1.8-7.7) 10/17/17 05:03 PT 15.2 Sec. (12.2-14.9) H 10/16/17 20:21 INR 1.14 (0.87-1.13) H 10/16/17 20:21 APTT 28.4 Sec. (24.2-36.6) 10/16/17 07:26 VBG pH 7.390 (7.320-7.420) 10/15/17 20:53 Sodium 142 mmol/L (137-145) 10/16/17 20:21 Potassium 3.8 mmol/L (3.6-5.0) 10/16/17 20:21 Chloride 105.9 mmol/L (98-107) 10/16/17 20:21 Carbon Dioxide 24 mmol/L (22-30) 10/16/17 20:21 Anion Gap 16 mmol/L 10/16/17 20:21 BUN 5 mg/dL (7-17) L 10/16/17 20:21 Creatinine 0.4 mg/dL (0.7-1.2) L 10/16/17 20:21 Estimated GFR > 60 ml/min 10/16/17 20:21 BUN/Creatinine Ratio 13 % 10/16/17 20:21 Glucose 133 mg/dL (65-100) H 10/16/17 20:21 Calcium 8.5 mg/dL (8.4-10.2) 10/16/17 20:21 Magnesium 1.80 mg/dL (1.7-2.3) 10/15/17 20:53 Total Bilirubin 1.20 mg/dL (0.1-1.2) 10/16/17 20:21 Direct Bilirubin < 0.2 mg/dL (0-0.2) 10/16/17 06:22 Indirect Bilirubin 0.3 mg/dL 10/15/17 20:53 AST 10 units/L (5-40) 10/16/17 20:21 ALT 7 units/L (7-56) 10/16/17 20:21 Alkaline Phosphatase 51 units/L (35-129) 10/16/17 20:21 Total Creatine Kinase 37 units/L (30-135) 10/15/17 20:53 Total Protein 5.6 g/dL (6.3-8.2) L 10/16/17 20:21 Albumin 3.4 g/dL (3.9-5) L 10/16/17 20:21 Albumin/Globulin Ratio 1.5 % 10/16/17 20:21 Urine Color Yellow (Yellow) 10/15/17 21:43 Urine Turbidity Clear (Clear) 10/15/17 21:43 Urine pH 5.0 (5.0-7.0) 10/15/17 21:43 Ur Specific [place] 1.009 (1.003-1.030) 10/15/17 21:43 Urine Protein <15 mg/dl mg/dL (Negative) 10/15/17 21:43 Urine Glucose (UA) Neg mg/dL (Negative) 10/15/17 21:43 Urine Ketones Neg mg/dL (Negative) 10/15/17 21:43 Urine Blood Neg (Negative) 10/15/17 21:43 Urine Nitrite Neg (Negative) 10/15/17 21:43 Urine Bilirubin Neg (Negative) 10/15/17 21:43 Urine Urobilinogen < 2.0 mg/dL (<2.0) 10/15/17 21:43 Ur Leukocyte Esterase Neg (Negative) 10/15/17 21:43 Urine WBC (Auto) < 1.0 /HPF (0.0-6.0) 10/15/17 21:43 Urine RBC (Auto) < 1.0 /HPF (0.0-6.0) 10/15/17 21:43 U Epithel Cells (Auto) < 1.0 /HPF (0-13.0) 10/15/17 21:43 Urine Bacteria (Auto) 1+ /HPF (Negative) 10/15/17 21:43 Salicylates < 0.3 mg/dL (2.8-20.0) L 10/15/17 20:53 Urine Opiates Screen Presumptive negative 10/15/17 21:43 Urine Methadone Screen Presumptive negative 10/15/17 21:43 Acetaminophen < 15.0 ug/mL (10.0-30.0) 10/16/17 20:21 Ur Barbiturates Screen Presumptive negative 10/15/17 21:43 Ur Phencyclidine Scrn Presumptive negative 10/15/17 21:43 Ur Amphetamines Screen Presumptive negative 10/15/17 21:43 U Benzodiazepines Scrn Presumptive negative 10/15/17 21:43 Urine Cocaine Screen Presumptive negative 10/15/17 21:43 U Marijuana (THC) Screen Presumptive negative 10/15/17 21:43 Drugs of Abuse Note Disclamer 10/15/17 21:43 Plasma/Serum Alcohol 0.18 gm% (0-0.07) H 10/15/17 20:53
[2017-10-18 07:36] VITALS: BP 136/78
--- NOTE | 2017-10-18 08:23 | Progress Note ---
Assessment and Plan Assessment and plan: Patient was admitted for acetaminophen overdose with intent to kill herself after she has argument with her mother. She said she took 50 acetaminophen tablets. At presentation acetaminophen level was high and she was treated With N-actylcystine. Liver enzymes are within normal limits. INR was slightly elevated but trending down. Patient is medically cleared for discharge. Psych finding placement for inpatient psychiatric treatment. Hospitalist Physical - Constitutional Vitals: Temp Pulse Resp BP Pulse Ox 98.4 F 70 16 136/78 99 10/18/17 07:35 10/18/17 00:10 10/18/17 07:35 10/18/17 07:35 10/18/17 07:35 General appearance: Present: no acute distress Results - Labs CBC & Chem 7: 10/17/17 05:03 10/16/17 20:21 Labs: Laboratory Last Values WBC 5.5 K/mm3 (4.5-11.0) 10/17/17 05:03 RBC 3.58 M/mm3 (3.65-5.03) L 10/17/17 05:03 Hgb 11.2 gm/dl (10.1-14.3) 10/17/17 05:03 Hct 33.3 % (30.3-42.9) 10/17/17 05:03 MCV 93 fl (79-97) 10/17/17 05:03 MCH 31 pg (28-32) 10/17/17 05:03 MCHC 34 % (30-34) 10/17/17 05:03 RDW 13.1 % (13.2-15.2) L 10/17/17 05:03 Plt Count 189 K/mm3 (140-440) 10/17/17 05:03 Lymph % (Auto) 38.9 % (13.4-35.0) H 10/17/17 05:03 [place] % (Auto) 6.9 % (0.0-7.3) 10/17/17 05:03 Eos % (Auto) 1.7 % (0.0-4.3) 10/17/17 05:03 Baso % (Auto) 0.5 % (0.0-1.8) 10/17/17 05:03 Lymph # 2.1 K/mm3 (1.2-5.4) 10/17/17 05:03 [place] # 0.4 K/mm3 (0.0-0.8) 10/17/17 05:03 Eos # 0.1 K/mm3 (0.0-0.4) 10/17/17 05:03 Baso # 0.0 K/mm3 (0.0-0.1) 10/17/17 05:03 Seg Neutrophils % 52.0 % (40.0-70.0) 10/17/17 05:03 Seg Neutrophils # 2.8 K/mm3 (1.8-7.7) 10/17/17 05:03 PT 15.2 Sec. (12.2-14.9) H 10/16/17 20:21 INR 1.14 (0.87-1.13) H 10/16/17 20:21 APTT 28.4 Sec. (24.2-36.6) 10/16/17 07:26 VBG pH 7.390 (7.320-7.420) 10/15/17 20:53 Sodium 142 mmol/L (137-145) 10/16/17 20:21 Potassium 3.8 mmol/L (3.6-5.0) 10/16/17 20:21 Chloride 105.9 mmol/L (98-107) 10/16/17 20:21 Carbon Dioxide 24 mmol/L (22-30) 10/16/17 20:21 Anion Gap 16 mmol/L 10/16/17 20:21 BUN 5 mg/dL (7-17) L 10/16/17 20:21 Creatinine 0.4 mg/dL (0.7-1.2) L 10/16/17 20:21 Estimated GFR > 60 ml/min 10/16/17 20:21 BUN/Creatinine Ratio 13 % 10/16/17 20:21 Glucose 133 mg/dL (65-100) H 10/16/17 20:21 Calcium 8.5 mg/dL (8.4-10.2) 10/16/17 20:21 Magnesium 1.80 mg/dL (1.7-2.3) 10/15/17 20:53 Total Bilirubin 1.20 mg/dL (0.1-1.2) 10/16/17 20:21 Direct Bilirubin < 0.2 mg/dL (0-0.2) 10/16/17 06:22 Indirect Bilirubin 0.3 mg/dL 10/15/17 20:53 AST 10 units/L (5-40) 10/16/17 20:21 ALT 7 units/L (7-56) 10/16/17 20:21 Alkaline Phosphatase 51 units/L (35-129) 10/16/17 20:21 Total Creatine Kinase 37 units/L (30-135) 10/15/17 20:53 Total Protein 5.6 g/dL (6.3-8.2) L 10/16/17 20:21 Albumin 3.4 g/dL (3.9-5) L 10/16/17 20:21 Albumin/Globulin Ratio 1.5 % 10/16/17 20:21 Urine Color Yellow (Yellow) 10/15/17 21:43 Urine Turbidity Clear (Clear) 10/15/17 21:43 Urine pH 5.0 (5.0-7.0) 10/15/17 21:43 Ur Specific [place] 1.009 (1.003-1.030) 10/15/17 21:43 Urine Protein <15 mg/dl mg/dL (Negative) 10/15/17 21:43 Urine Glucose (UA) Neg mg/dL (Negative) 10/15/17 21:43 Urine Ketones Neg mg/dL (Negative) 10/15/17 21:43 Urine Blood Neg (Negative) 10/15/17 21:43 Urine Nitrite Neg (Negative) 10/15/17 21:43 Urine Bilirubin Neg (Negative) 10/15/17 21:43 Urine Urobilinogen < 2.0 mg/dL (<2.0) 10/15/17 21:43 Ur Leukocyte Esterase Neg (Negative) 10/15/17 21:43 Urine WBC (Auto) < 1.0 /HPF (0.0-6.0) 10/15/17 21:43 Urine RBC (Auto) < 1.0 /HPF (0.0-6.0) 10/15/17 21:43 U Epithel Cells (Auto) < 1.0 /HPF (0-13.0) 10/15/17 21:43 Urine Bacteria (Auto) 1+ /HPF (Negative) 10/15/17 21:43 Salicylates < 0.3 mg/dL (2.8-20.0) L 10/15/17 20:53 Urine Opiates Screen Presumptive negative 10/15/17 21:43 Urine Methadone Screen Presumptive negative 10/15/17 21:43 Acetaminophen < 15.0 ug/mL (10.0-30.0) 10/16/17 20:21 Ur Barbiturates Screen Presumptive negative 10/15/17 21:43 Ur Phencyclidine Scrn Presumptive negative 10/15/17 21:43 Ur Amphetamines Screen Presumptive negative 10/15/17 21:43 U Benzodiazepines Scrn Presumptive negative 10/15/17 21:43 Urine Cocaine Screen Presumptive negative 10/15/17 21:43 U Marijuana (THC) Screen Presumptive negative 10/15/17 21:43 Drugs of Abuse Note Disclamer 10/15/17 21:43 Plasma/Serum Alcohol 0.18 gm% (0-0.07) H 10/15/17 20:53
--- NOTE | 2017-10-19 16:07 | Discharge Summary ---
Providers - Providers Date of Admission: 10/15/17 23:57 Attending physician: REBECCA JIMENEZ MD 10/16/17 00:02 psychiatry consult [Consult to Mental Health] [CONS] Routine Reason For Exam: suicide attempt Place consult to:: psych Notified:: radha Phone number called:: [phone] Was contact made?: Yes If yes, spoke with:: mike Time called:: 07:50 Primary care physician: COOKY PACKER Hospitalization Condition: Stable Hospital course: Patient was admitted for acetaminophen overdose with intent to kill herself after she has argument with her mother. She said she took 50 acetaminophen tablets. At presentation acetaminophen level was high and she was treated With N-actylcystine. Liver enzymes are within normal limits. INR was elevated but normalized. She received IV fluids. She clinically improved. Is medically optimized for transfer to inpatient psychiatric unit. She was subsequently transferred to an inpatient psychiatric care facility Diagnoses Suicide attempts Major depression Acute hepatitis due to Tylenol toxicity Coagulopathy Disposition: [id number]/TX-65 PSY HOSP/PSY UNIT Time spent for discharge: 33 minutes Core Measure Documentation - Palliative Care Palliative Care/ Comfort Measures: Not Applicable - Core Measures Any of the following diagnoses?: none Exam - Constitutional Vitals: Temp Pulse Resp BP Pulse Ox 98.4 F 71 16 136/78 99 10/18/17 07:35 10/18/17 00:10 10/18/17 07:35 10/18/17 07:35 10/18/17 07:35 General appearance: Present: no acute distress, well-nourished - EENT Eyes: Present: PERRL ENT: hearing intact, clear oral mucosa - Neck Neck: Present: supple, normal ROM - Respiratory Respiratory effort: normal Respiratory: bilateral: CTA - Cardiovascular Heart Sounds: Present: S1 & S2. Absent: rub, click - Extremities Extremities: pulses symmetrical, No edema Peripheral Pulses: within normal limits - Abdominal General gastrointestinal: Present: soft, non-tender, non-distended, normal bowel sounds Female genitourinary: Present: normal - Integumentary Integumentary: Present: clear, warm, dry - Musculoskeletal Musculoskeletal: gait normal, strength equal bilaterally - Psychiatric Psychiatric: no appropriate mood/affect, no intact judgment & insight - Neurologic Neurologic: CNII-XII intact, moves all extremities Plan Follow up with: PRIMARY CAREMD [Primary Care Provider] - 7 Days
== END 2017-10-18 12:45 | DRG 918 ==
LOC: ED 20:35 → 3A 23:57
PROVIDERS: ADMIT Internal Medicine; ATTEND Internal Medicine
DX: T39.1X2A Poisoning by 4-Aminophenol derivatives, intentional self-harm, initial encounter (principal); E74.01 von Gierke disease; F17.210 Nicotine dependence, cigarettes, uncomplicated; F10.129 Alcohol abuse with intoxication, unspecified; F32.9 Major depressive disorder, single episode, unspecified; Z88.6 Allergy status to analgesic agent; Y92.89 Other specified places as the place of occurrence of the external cause; Z88.2 Allergy status to sulfonamides
CPT/HCPCS: 36415; 80048; 80053; 80074; 80307; 80320; 81001; 82550; 82805; 83735; 85025; 85610; 85730; 93005; 93010; 96361; 96365; 96367; G0480; J0132; J7030; J7060; J7070